=== PATIENT | male | born 1975 | race Caucasian/White ===

== ENCOUNTER → 2021-03-19 14:29 | Outpatient (CLI) | payer BC, SELFPAY ==
--- NOTE | 2021-03-19 14:30 | DI.US.S_ITS ---
PROCEDURE: US PERIPH VENOUS LOW EXTREM RT INDICATIONS: Unilateral leg swelling TECHNIQUE: Real-time imaging, as well as color and pulse Doppler interrogation, were performed of the lower extremity deep veins from the inguinal ligament to the popliteal fossa. COMPARISON: None. FINDINGS: The common femoral, femoral and popliteal veins are normally compressible, and free of intraluminal thrombus. Color and pulse Doppler demonstrate normal phasic intraluminal flow. There is normal augmentation response to distal compression maneuver. Superficial thrombophlebitis within the right anterior calf in the area of pain. IMPRESSION: 1. No deep venous thrombosis identified within the right lower extremity. 2. Superficial thrombophlebitis within the calf. Dictated by: Huey Hicks [facility] Interpreted: Zan Villareal MD on 03/19/2021 at 15:10 Transcribed by: ALPHONSO on 03/19/2021 at 15:11 Approved by: Pierre Villareal M.D. on 03/21/2021 at 7:44
== END ==
PROVIDERS: PCP Family Medicine; Referring Provider Student in an Organized Health Care Education/Training Program; Visit Provider Student in an Organized Health Care Education/Training Program
DX: R60.0 Localized edema (principal); I80.3 Phlebitis and thrombophlebitis of lower extremities, unspecified
CPT/HCPCS: 93971

== ENCOUNTER 2021-07-12 16:28 | Emergency (ER) | payer BC, SELFPAY ==
[2021-07-12 16:45] VITALS: BP 122/76; PULSE 75; RESP 16; TEMP 36.1; O2SAT 98; BMI 39.1
--- NOTE | 2021-07-12 21:54 | ED.WOUNDLAC ---
HPI - Wound/Laceration General Chief Complaint: Wound/Laceration Stated Complaint: Throne in right leg stuck in vein Time Seen by Provider: 07/12/21 21:48 Source: patient Mode of arrival: Ambulatory History of Present Illness HPI narrative: The patient is a healthy 45-year-old male who presents with a right leg injury. He was walking and shorts outside when a thorn opened up a varicose vein. He was bleeding quite a bit. He on any antiplatelet or anticoagulation medication. At home it was wrapped in it very tight dressing. It was rewrapped with Coban and 4x4s at triage. The bleeding has now stopped. He has no numbness tingling or weakness. Related Data Previous Rx's Medication Instructions Recorded sildenafil (pulm.hypertension) 20 40 mg PO DAILY PRN #30 tab 03/15/21 mg tablet methylphenidate HCl 10 mg 10 mg PO DAILY #30 tab 07/01/21 tablet,extended release Allergies Allergy/AdvReac Type Severity Reaction Status Date / Time No Known Drug Allergies Allergy Verified 07/12/21 16:57 Review of Systems Review of Systems Narrative: GENERAL: Denies chills,fever HEENT: Denies throat pain RESPIRATORY: Denies dyspnea, cough, wheezing CARDIOVASCULAR: Denies chest pain, palpitations GASTROINTESTINAL: Denies nausea, vomiting MUSCULOSKELETAL: Denies extremity pain, injury SKIN: See HPI NEUROLOGIC: Denies weakness, dizziness, headache, numbness 8 point review of systems is negative except for those stated above and HPI Patient History Medical History (Updated 07/12/21 @ 22:07 by Brenna Esteban DO) Erectile dysfunction Surgical History (Updated 06/23/20 @ 08:03 by Shon Johnson DO) History of gastric bypass Social History Smoking Status: Never smoker alcohol intake: current Smoking Status: Never smoker alcohol intake frequency: holidays/special occasions only Substance Use Type: does not use Exam Initial Vital Signs Initial Vital Signs: Vital Signs Temperature 97.0 F L 07/12/21 16:45 Pulse Rate 75 07/12/21 16:45 Respiratory Rate 16 07/12/21 16:45 Blood Pressure 122/76 07/12/21 16:45 Pulse Oximetry 98 07/12/21 16:45 GENERAL: Well-appearing, well-nourished and in no acute distress. CARDIOVASCULAR: peripheral pulses in tact, cap refill <2 sec RESPIRATORY: No respiratory distress, speaks in full sentences without difficulty EXTREMITIES: Normal range of motion, no clubbing or edema. Neurovascularly intact NEUROLOGICAL: Cranial nerves II through XII grossly intact. Normal gait and speech. SKIN: Right leg very small puncture wound noted but bleeding is now controlled. Course Orders Ordered: Discontinued Medications Diphtheria/Tetanus/Acell Pertussis (Tet,Diph,Pertuss(Acell),Vac/Pf 0.5 Ml Syringe) 0.5 ml IM .ONCE ONE Stop: 07/12/21 20:51 Last Admin: 07/12/21 22:04 Dose: 0.5 ml Documented by: JOSE EDUARDO Vital Signs Vital signs: Vital Signs - 8 hr 07/12/21 22:10 Pulse Rate 67 Respiratory Rate 16 Blood Pressure 117/69 Pulse Oximetry 99 Discharge Plan Departure Patient Disposition: Home Clinical Impression: Puncture wound Instructions: DI for Puncture Wound Activity Restrictions/Additional Instructions: *You have been diagnosed with small puncture wound *What to do: At this time keep dressing on until morning. If bleeding should start again elevate apply pressure and ice. If bleeding continues may need to return to emergency department *Continue to take medications as directed *Follow up with your primary care provider in 2-3 days or call [phone] *Return to ER if you should have persistent bleeding despite above measures, redness drainage pain or any new, worsening or concerning symptoms Prescriptions: No Action sildenafil (pulm.hypertension) 20 mg tablet 40 mg PO DAILY PRN (Reason: sexual activity) Qty: 30 1RF Rx Instructions: administer doses 30-45 minutes prior to sexual activity methylphenidate HCl 10 mg tablet extended release 10 mg PO DAILY Qty: 30 0RF Referrals: Shon Johnson, [Primary Care Provider] -
[2021-07-12] MEDS: TET,DIPH,PERTUSS(ACELL),VAC/PF 0.5 ML SYRINGE IM (22:04)
[2021-07-12 22:10] VITALS: BP 117/69; PULSE 67; RESP 16; O2SAT 99
== END 2021-07-12 22:10 | disposition home or self-care (01) ==
PROVIDERS: Emergency Provider Emergency Medicine; PCP Family Medicine
DX: S81.831A Puncture wound without foreign body, right lower leg, initial encounter (principal); W60.XXXA Contact with nonvenomous plant thorns and spines and sharp leaves, initial encounter
CPT/HCPCS: 90471; 99282; 99283; 90715

== ENCOUNTER → 2021-07-17 08:47 | Outpatient (CLI) | payer BC, SELFPAY ==
[2021-07-17 09:03] LABS: COVID19 -Nasal RAPID POSITIVE (Negative)
== END ==
PROVIDERS: PCP Family Medicine; Visit Provider Physician Assistant
DX: Z20.822 Contact with and (suspected) exposure to COVID-19 (principal)
CPT/HCPCS: 87635

== ENCOUNTER → 2021-08-20 11:30 | Outpatient (CLI) | payer BC, SELFPAY ==
--- NOTE | 2021-08-20 11:32 | DI.RAD.S_ITS ---
PROCEDURE: XR ELBOW RT MIN 3V INDICATIONS: elbow pain TECHNIQUE: 3 views of the elbow were acquired. COMPARISON: None. FINDINGS: Bones: No fractures or dislocations. Trace olecranon enthesophyte. Soft tissues: No elbow joint effusion. No suspicious soft tissue calcifications. IMPRESSION: No acute osseous abnormality. Dictated by: Syd Hernández M.D. on 08/20/2021 at 12:18 Approved by: Syd Hernández M.D. on 08/20/2021 at 12:28
== END ==
PROVIDERS: PCP Family Medicine; Referring Provider Nurse Practitioner Family; Visit Provider Nurse Practitioner Family
DX: S59.901A Unspecified injury of right elbow, initial encounter (principal); X58.XXXA Exposure to other specified factors, initial encounter
CPT/HCPCS: 73080

== ENCOUNTER → 2022-06-08 16:03 | Outpatient (CLI) | payer BC, SELFPAY ==
[2022-06-08 16:39] LABS: COVID19 -Nasal RAPID Negative (Negative)
== END ==
PROVIDERS: PCP Family Medicine; Referring Provider Surgery; Visit Provider Surgery
DX: Z01.812 Encounter for preprocedural laboratory examination (principal); Z20.822 Contact with and (suspected) exposure to COVID-19
CPT/HCPCS: 87635; C9803

== ENCOUNTER 2022-06-09 10:42 | Day surgery (SDC) | payer BC, SELFPAY ==
[2022-06-09] VITALS (7 sets, daily range): BP systolic 116–140; BP diastolic 72–99; PULSE 58–71; RESP 11–17; TEMP 36.1–36.6; O2SAT 96–99; BMI 41.3
[2022-06-09] MEDS: LACTATED RINGERS 1,000 ML 42 ML IV (11:10)
--- NOTE | 2022-06-09 13:31 | PM.HP.1 ---
History of Present Illness History of Present Illness Date Patient Seen: 06/09/22 Time Patient Seen: 13:31 Chief complaint: SCREENING COLONOSCOPY Narrative: Nathan is 46-year-old man who is here for colonoscopy. He has never had 1 before. Has no family history of colon cancer. Patient History Medical History (Updated 06/09/22 @ 13:32 by Gabriel Renae MD) Erectile dysfunction Right lateral epicondylitis Surgical History History of gastric bypass Family & Social History Social History: household members spouse Tobacco & Substance use: Smoking Status Never smoker alcohol intake current alcohol intake frequency a few times a week Substance Use Type does not use Meds Home Medications and Allergies Home Medications Medication Instructions Recorded Confirmed Type methylphenidate HCl 10 mg 10 mg PO DAILY #30 tabs 02/23/22 Rx tablet,extended release sodium sul 1.479 gram-potas ch See Rx Instructions PO PER PKG DIR 04/26/22 Rx 0.188 gram-magnes sul 0.225 gram #24 tabs tablet (Sutab) sildenafil (pulm.hypertension) 20 See Rx Instructions .Route 05/16/22 Rx mg tablet .COMPLEX #30 tabs Allergies Allergy/AdvReac Type Severity Reaction Status Date / Time No Known Drug Allergies Allergy Verified 09/24/21 10:05 Exam Vital Signs (past 8 hours): - 06/09/22 11:10 Temperature 98 F Pulse Rate 71 Respiratory Rate 17 Blood Pressure 120/72 Pulse Oximetry 99 Oxygen Delivery Method Room Air Oxygen Delivery Method Room Air Const General: No acute distress Assessment & Plan Assessment and plan (1) Colon cancer screening: Status: Acute Plan We discussed risks and benefits of colonoscopy and he would like to proceed. Time Spent With Patient Critical Care time: I spent a total of [] minutes of critical care time on this patient's care today; this time is exclusive of procedural time.
--- NOTE | 2022-06-09 14:35 | PM.OP.COLON ---
Operative Date/Time/Diagnoses Date of procedure: 06/09/22 Time of procedure: 14:35 Pre-op diagnosis: Colon cancer screening Post-op diagnosis: same Procedure & Clinicians Study performed: Colonoscopy Same procedure as scheduled: Yes Surgeon: Gabriel Renae Procedure Notes Procedure in detail: Surgeon: Gabriel Renae MD Anesthesia: Dr. Malik Procedure: The patient was brought to the endoscopy suite, placed in left lateral decubitus position. The patient was connected to monitoring devices. A time-out was performed. Sedation was administered. Once the patient was adequately sedated, a digital rectal exam was performed and was normal. The scope was then inserted and advanced to the cecum where the appendiceal orifice was identified and photographed. It was difficult to reach the cecum due to body habitus but with repositioning and abdominal compression we were able to reach the cecum. The scope was then slowly withdrawn over greater than 6 minutes. The mucosa was thoroughly inspected. No polyps were noted. The scope was retroflexed in the rectum. No abnormalities were noted. The scope was straightened and removed. The patient was awakened and brought to recovery. Scope withdrawal time: 8 minutes Sedation time: 28 minutes EBL: 0 Findings: Normal colon Post-procedure Recommendations: Colonoscopy in 10 years Disposition: PACU
== END 2022-06-09 15:40 | disposition home or self-care (01) ==
PROVIDERS: PCP Family Medicine; Referring Provider Surgery; Visit Provider Surgery
PROC: 0DJD8ZZ Inspection of Lower Intestinal Tract, Via Natural or Artificial Opening Endoscopic (ICD-10-PCS; CPT 45378; principal; 2022-06-09 12:00)
DX: Z12.11 Encounter for screening for malignant neoplasm of colon (principal)
CPT/HCPCS: 45378

== ENCOUNTER → 2022-09-05 09:27 | Outpatient (CLI) | payer BC, SELFPAY ==
[2022-09-05 10:18] LABS: Add Manual Diff / Slide Review NO; Basophils Absolute Auto 0 /uL (0-100); Basophils Percent Auto 0.6 % (0-2); Eosinophils Absolute Auto 100 /uL (0-450); Eosinophils Percent Auto 1.7 % (2-4); Hematocrit 45.8 % (41-53); Hemoglobin 15.3 g/dL (13.5-17.5); Lymphocytes Absolute Auto 1300 /uL (1100-4500); Lymphocytes Percent Auto 24.5 % (25-40); Mean Corpuscular HGB Conc 33.4 % (30-36); Mean Corpuscular Volume 87.1 fL (80-100); Monocytes Absolute Auto 500 /uL (0-900); Monocytes Percent Auto 8.4 % (3-14); Neutrophils Absolute Auto 3600 /uL (1500-7000); Neutrophils Percent Auto 64.8 % (50-75); Platelet Count 196 X10^3/uL (150-400); Red Blood Cell Count 5.26 X10^6/uL (4.5-5.9); Red Cell Distribution Width 12.9 % (11.6-14.8); White Blood Cell Count 5.5 X10^3/uL (4.5-11.0)
[2022-09-05 10:40] LABS: Alanine Aminotransferase 27 IU/L (<50); Albumin 4.6 g/dL (3.5-5.0); Albumin Globulin Ratio 1.4 (1.0-2.8); Alkaline Phosphatase 66 U/L (38-126); Aspartate Aminotransferase 28 IU/L (17-59); BUN Creatinine Ratio 15.6 (6-22); Bilirubin Total 0.9 mg/dL (0.2-1.3); Blood Urea Nitrogen 17 mg/dL (9-20); Calcium 9.6 mg/dL (8.4-10.2); Carbon Dioxide 31 mmol/L (22-32); Chloride 100 mmol/L (98-107); Cholesterol 207 mg/dL (140-199); Estimated Glomerular Filt Rate > 60 mL/min (>60); Globulin 3.3 g/dL (1.7-4.1); Glucose 93 mg/dL (70-100); HDL Cholesterol 52 mg/dL (40-60); HEMOLYSIS < 15 (0-50); LDL Cholesterol Calculated 103 mg/dL (<100); Potassium 4.6 mmol/L (3.4-5.1); Sodium 138 mmol/L (137-145); Total Protein 7.9 g/dL (6.3-8.2); Triglycerides 260 mg/dL (35-150)
[2022-09-05 18:16] LABS: HIV 1 & 2 Ab/Ag 4th Gen Combo NEGATIVE (NEGATIVE); Hep C Virus Ab w/Reflex Quant NEGATIVE s/c (NEGATIVE)
== END ==
PROVIDERS: PCP Family Medicine; Referring Provider Family Medicine; Visit Provider Family Medicine
DX: Z11.4 Encounter for screening for human immunodeficiency virus [HIV] (principal); Z11.59 Encounter for screening for other viral diseases; E66.01 Morbid (severe) obesity due to excess calories; Z13.6 Encounter for screening for cardiovascular disorders; Z13.9 Encounter for screening, unspecified; Z68.41 Body mass index [BMI] 40.0-44.9, adult
CPT/HCPCS: 36415; 80053; 80061; 85025; 86803; 87389

== ENCOUNTER → 2023-07-28 09:06 | Outpatient (CLI) | payer BC, SELFPAY ==
[2023-07-28 10:18] LABS: Cholesterol 173 mg/dL (140-199); HDL Cholesterol 56 mg/dL (40-60); LDL Cholesterol Calculated 101 mg/dL (<100); Triglycerides 81 mg/dL (35-150)
== END ==
PROVIDERS: PCP Family Medicine; Referring Provider Family Medicine; Visit Provider Family Medicine
DX: E78.1 Pure hyperglyceridemia (principal)
CPT/HCPCS: 36415; 80061